=== PATIENT | female | born 1995 | race Two or more races ===

== ENCOUNTER 2017-06-12 05:33 | Emergency (ER) | payer OTHER ==
[~2017-06-12] VITALS: Ht 152.4 cm; Wt 63.5 kg
[~2017-06-12 05:33] MED LIST: OBSTETRIX EC C1 EACH
== END 2017-06-12 11:23 | disposition home or self-care (01) ==
LOC: ER 05:33
DX: K52.9 Noninfective gastroenteritis and colitis, unspecified (principal)

== ENCOUNTER 2017-08-21 15:55 | Inpatient (IN) | payer OTHER ==
[~2017-08-21] VITALS: Ht 152.4 cm; Wt 66.7 kg
[2017-08-21] MEDS ORDERED: PRENATAL TABLE1 EACH PO (18:20)
== END 2017-08-24 10:49 | disposition home or self-care (01) | DRG 780 ==
LOC: LDR 15:55 → OB/GYN 08-23 11:00
PROC: 4A1HXCZ Monitoring of Products of Conception, Cardiac Rate, External Approach (ICD-10-PCS; principal; 2017-08-21)
DX: O47.03 False labor before 37 completed weeks of gestation, third trimester (principal); O99.013 Anemia complicating pregnancy, third trimester

== ENCOUNTER 2017-09-09 03:40 | Inpatient (IN) | payer OTHER ==
[~2017-09-09] VITALS: Ht 152.4 cm; Wt 2.7 kg
[~2017-09-09 03:40] MED LIST changes: +PRENATAL TABLE1 EACH PO
[2017-09-12] MEDS ORDERED: OXYC1TAB9 PO (09:58)
[2017-09-12] MEDS ORDERED: PREPLUS CA-FE1 EACH PO (09:58)
[2017-09-12] MEDS ORDERED: NAPR500T14 PO (09:58)
== END 2017-09-12 12:01 | disposition home or self-care (01) | DRG 766 ==
LOC: LDR 03:40 → O/R 12:30 → OB/GYN 13:03
PROVIDERS: Specialist
PROC: 4A033R1 Measurement of Arterial Saturation, Peripheral, Percutaneous Approach (ICD-10-PCS; 2017-09-09)
PROC: 4A1HXCZ Monitoring of Products of Conception, Cardiac Rate, External Approach (ICD-10-PCS; 2017-09-09)
PROC: 3E033VJ Introduction of Other Hormone into Peripheral Vein, Percutaneous Approach (ICD-10-PCS; 2017-09-09)
PROC: 10D00Z1 Extraction of Products of Conception, Low, Open Approach (ICD-10-PCS; principal; 2017-09-09 11:15)
DX: O62.0 Primary inadequate contractions (principal); Z3A.38 38 weeks gestation of pregnancy; Z37.0 Single live birth